=== PATIENT | male | born 1965 | race Caucasian/White ===

== ENCOUNTER 2018-12-09 18:45 | Inpatient (IN) | payer MEDICARE, MEDICAID ==
[~2018-12-09] VITALS: Ht 195.6 cm; Wt 81.6 kg
[2018-12-09] MEDS ORDERED: PRO1 PO (18:55)
[2018-12-09] MEDS ORDERED: LISI2.5T47 PO (18:55)
[2018-12-09] MEDS ORDERED: ATEN-42 PO (18:55)
[2018-12-09] MEDS ORDERED: GLIP5TAB12 PO (18:55)
[2018-12-09] MEDS ORDERED: REN800 PO (18:55)
[2018-12-09] MEDS ORDERED: IPRATROPIUM/ALBUTEROL 0.5-3(2.5)MG/3ML NEB HHN ONE (20:45)
[2018-12-09] MEDS ORDERED: LEVOFLOXACIN 500MG PREMIX 100 ML IV ONE (20:45)
[2018-12-09 21:14] LABS: BASOPHILS % 1.4 % (0.0-2.0); EOSINOPHILS % 4.7 % (0.0-5.0); HEMATOCRIT. 31.3 % (42.0-52.0); HEMOGLOBIN. 10.6 g/dL (14.0-18.0); LYMPHOCYTES % 16.2 % (20.0-50.0); MEAN CORPUSCULAR HEMOGLOBIN 31.8 pg (28.0-32.0); MONOCYTES % 6.2 % (2.0-8.0); NEUTROPHILS % 71.5 % (40.0-76.0); PLATELET 134 x1000/uL (130-400); RED BLOOD CELL COUNT 3.33 mill/uL (4.7-6.1); RED CELL DISTRIBUTION WIDTH 16.4 % (11.6-14.6)
[2018-12-09 21:20] LABS: CHLORIDE 101 mEq/L (98-107)
[2018-12-09 21:22] LABS: INR 1.1; PARTIAL THROMBOPLASTIN TIME 29.4 sec (23.4-31.0); PROTHROMBIN TIME 11.5 sec (9.6-11.0)
[2018-12-09 21:23] LABS: ETHANOL BLOOD < 10 mg/dL
[2018-12-09] MEDS ORDERED: HYDROCODONE/ACETAMINOPHEN 5/325MG TABLET PO PRN (23:30)
[2018-12-09] MEDS ORDERED: ONDANSETRON HCL 4MG/2ML INJ IV PRN (23:30)
[2018-12-09] MEDS ORDERED: IPRATROPIUM/ALBUTEROL 0.5-3(2.5)MG/3ML NEB INH PRN (23:30)
[2018-12-10] MEDS: LORAZEPAM 2MG/ML CPJ IV PRN (03:44)
[2018-12-10] MEDS: CLONIDINE 0.1MG TABLET PO PRN (09:55)
[2018-12-10] MEDS: THIAMINE HCL 100MG TABLET PO SCH (10:14)
[2018-12-10] MEDS: ASPIRIN 81MG EC TABLET PO SCH (10:14)
[2018-12-10] MEDS: ENOXAPARIN 30MG/0.3ML SYR SUBCUT SCH (10:16)
[2018-12-10 10:39] VITALS: BP 166/85
[2018-12-10 10:40] VITALS: BP 160/80
[2018-12-10] MEDS ORDERED: ASPI-1159 PO (11:29)
[2018-12-10] MEDS ORDERED: FOLI0.8T23 MT (11:31)
[2018-12-10] MEDS ORDERED: LIP40 PO (11:31)
[2018-12-10 12:00] VITALS: BP 162/78
[2018-12-10] MEDS ORDERED: LORAZEPAM 0.5MG TABLET PO PRN (12:15)
[2018-12-10 16:00] VITALS: BP 148/71
[2018-12-10 20:00] VITALS: BP 139/59
[2018-12-11] VITALS (8 sets, daily range): BP systolic 147–203; BP diastolic 75–90
[2018-12-11] MEDS: CLONIDINE 0.1MG TABLET PO PRN (00:01)
[2018-12-11] MEDS: LORAZEPAM 2MG/ML CPJ IV PRN (04:22)
[2018-12-11 07:04] LABS: BASOPHILS % 1.3 % (0.0-2.0); EOSINOPHILS % 5.2 % (0.0-5.0); HEMATOCRIT. 32.4 % (42.0-52.0); HEMOGLOBIN. 10.7 g/dL (14.0-18.0); LYMPHOCYTES % 14.3 % (20.0-50.0); MEAN CORPUSCULAR HEMOGLOBIN 31.5 pg (28.0-32.0); MEAN CORPUSCULAR VOLUME 95.5 fL (80.0-94.0); MEAN PLATELET VOLUME 10.9 fl (7.4-10.4); MONOCYTES % 6.5 % (2.0-8.0); NEUTROPHILS % 72.7 % (40.0-76.0); PLATELET 123 x1000/uL (130-400); RED BLOOD CELL COUNT 3.39 mill/uL (4.7-6.1); RED CELL DISTRIBUTION WIDTH 16.3 % (11.6-14.6)
[2018-12-11 07:36] LABS: PHOSPHORUS 4.6 mg/dL (2.5-4.9)
[2018-12-11] MEDS: ASPIRIN 81MG EC TABLET PO SCH (08:01)
[2018-12-11] MEDS: ENOXAPARIN 30MG/0.3ML SYR SUBCUT SCH (08:01)
[2018-12-11] MEDS: THIAMINE HCL 100MG TABLET PO SCH (08:01)
[2018-12-11] MEDS ORDERED: MAGNESIUM/ALUMINUM HYDROXIDE/SIMETHICONE 30ML UDC PO PRN (13:00)
[2018-12-11] MEDS ORDERED: DEXTROSE 50% WATER 50ML SYRINGE IV PRN ×2 (13:00)
[2018-12-11] MEDS: BLOOD SUGAR DIAGNOSTIC STRIP TEST SCH ×2 (17:38→20:21)
[2018-12-11] MEDS: SEVELAMER CARBONATE 800 MG TABLET PO SCH (17:52)
[2018-12-11] MEDS: NIFEDIPINE XL 60MG TAB PO SCH (17:55)
[2018-12-11] MEDS: LISINOPRIL 10MG TABLET PO SCH (20:21)
[2018-12-11] MEDS: GUAIFENESIN 600MG ER TABLET PO SCH (20:21)
[2018-12-11] MEDS: ATENOLOL 50 MG TABLET PO SCH (20:21)
[2018-12-11] MEDS ORDERED: ATORVASTATIN CALCIUM 40MG TABLET PO SCH (21:00)
[2018-12-12] VITALS: BP 200/81
[2018-12-12] MEDS: CLONIDINE 0.1MG TABLET PO PRN (00:11)
[2018-12-12 04:00] VITALS: BP 129/66
[2018-12-12] MEDS: BLOOD SUGAR DIAGNOSTIC STRIP TEST SCH ×2 (06:49→12:54)
[2018-12-12 07:22] LABS: BASOPHILS % 1.4 % (0.0-2.0); EOSINOPHILS % 5.6 % (0.0-5.0); HEMATOCRIT. 34.1 % (42.0-52.0); HEMOGLOBIN. 11.3 g/dL (14.0-18.0); LYMPHOCYTES % 14.9 % (20.0-50.0); MEAN CORPUSCULAR HEMOGLOBIN 31.2 pg (28.0-32.0); MEAN CORPUSCULAR VOLUME 94.2 fL (80.0-94.0); MEAN PLATELET VOLUME 10.9 fl (7.4-10.4); MONOCYTES % 7.2 % (2.0-8.0); NEUTROPHILS % 70.9 % (40.0-76.0); PLATELET 142 x1000/uL (130-400); RED BLOOD CELL COUNT 3.62 mill/uL (4.7-6.1); RED CELL DISTRIBUTION WIDTH 16.2 % (11.6-14.6)
[2018-12-12] MEDS ORDERED: GLIPIZIDE 5MG TABLET PO SCH (07:40)
[2018-12-12] MEDS ORDERED: OMEPRAZOLE 20MG CAPSULE EXTENDED RELEASE PO SCH (07:40)
[2018-12-12 08:00] VITALS: BP 147/72
[2018-12-12] MEDS: GUAIFENESIN 600MG ER TABLET PO SCH (09:06)
[2018-12-12] MEDS: SEVELAMER CARBONATE 800 MG TABLET PO SCH ×2 (09:07→13:33)
[2018-12-12] MEDS: THIAMINE HCL 100MG TABLET PO SCH (09:07)
[2018-12-12] MEDS: ASPIRIN 81MG EC TABLET PO SCH (09:07)
[2018-12-12] MEDS: ENOXAPARIN 30MG/0.3ML SYR SUBCUT SCH (09:07)
[2018-12-12 09:28] LABS: PHOSPHORUS 5.8 mg/dL (2.5-4.9)
[2018-12-12 12:00] VITALS: BP 160/71
[2018-12-12] MEDS: LISINOPRIL 10MG TABLET PO SCH (13:38)
[2018-12-12] MEDS: ATENOLOL 50 MG TABLET PO SCH (14:59)
[2018-12-12] MEDS: NIFEDIPINE XL 60MG TAB PO SCH (14:59)
[2018-12-12 15:50] VITALS: BP 154/73
[2018-12-12 16:00] VITALS: BP 154/73
== END 2018-12-12 16:20 | disposition home or self-care (01) | DRG 291 ==
LOC: ER 18:45 → EDBEDREQTM 23:31 → EDBEDREQ 23:31 → 7WST 23:33 → ENRESERV 12-10 09:19
PROVIDERS: ADMIT Internal Medicine Nephrology; ATTEND Internal Medicine Nephrology
PROC: 5A1D70Z Performance of Urinary Filtration, Intermittent, Less than 6 Hours Per Day (ICD-10-PCS; principal; 2018-12-10)
PROC: 5A1D70Z Performance of Urinary Filtration, Intermittent, Less than 6 Hours Per Day (ICD-10-PCS; 2018-12-12)
DX: I13.2 Hypertensive heart and chronic kidney disease with heart failure and with stage 5 chronic kidney disease, or end stage renal disease (principal); I50.31 Acute diastolic (congestive) heart failure; N18.6 End stage renal disease; J96.00 Acute respiratory failure, unspecified whether with hypoxia or hypercapnia; E11.22 Type 2 diabetes mellitus with diabetic chronic kidney disease; E78.00 Pure hypercholesterolemia, unspecified; E78.5 Hyperlipidemia, unspecified; I27.20 Pulmonary hypertension, unspecified; I16.0 Hypertensive urgency; E87.5 Hyperkalemia; D63.8 Anemia in other chronic diseases classified elsewhere; Z82.49 Family history of ischemic heart disease and other diseases of the circulatory system; Z99.2 Dependence on renal dialysis; Z79.84 Long term (current) use of oral hypoglycemic drugs
CPT/HCPCS: 36415; 71045; 80048; 80061; 80320; 82962; 83036; 83605; 83735; 83880; 84100; 84484; 93005; 93306; 93970; 96365; 96375; 97161; 99285; C1893; J1650; J1956; J2060; J7620; G0480

== ENCOUNTER → 2019-01-08 | Outpatient (CLI) | payer MEDICARE, MEDICAID ==
[~2019-01-08] MED LIST: ASPI-1393 PO; ATEN-42 PO; FOLI0.8T23 MT; GLIP5TAB12 PO; LIP40 PO; LISI2.5T47 PO; PRO1 PO; REN800 PO
== END | disposition home or self-care (01) ==
LOC: NM 12-31 11:31
PROVIDERS: ATTEND Specialist
DX: J44.9 Chronic obstructive pulmonary disease, unspecified (principal)
CPT/HCPCS: 71045; 78582; A9540; A9558

== ENCOUNTER → 2019-03-12 | Outpatient (CLI) | payer MEDICARE, MEDICAID | END | disposition home or self-care (01) | LOC: NM 09:13 | PROVIDERS: ATTEND Specialist | DX: I27.20 Pulmonary hypertension, unspecified (principal); J98.11 Atelectasis | CPT/HCPCS: 71046; 78582; A9540; A9558 ==

== ENCOUNTER 2019-07-15 09:39 | Inpatient (IN) | payer MEDICARE, MEDICAID ==
[~2019-07-15] VITALS: Ht 182.9 cm; Wt 82.1 kg
[2019-07-15] MEDS ORDERED: ONDANSETRON HCL 4MG/2ML INJ IV PRN (11:30)
[2019-07-15] MEDS ORDERED: ALBUTEROL (0.083%) 2.5MG/3ML NEB HHN ONE (11:45)
[2019-07-15] MEDS ORDERED: SODIUM POLYSTYRENE SULFONATE 15 G/60 ML BOT PO ONE (11:45)
[2019-07-15] MEDS ORDERED: INSULIN REGULAR (HUMULIN R) 300UNITS/3ML IV ONE (11:45)
[2019-07-15] MEDS ORDERED: DEXTROSE 50% WATER 50ML SYRINGE IV ONE (11:45)
[2019-07-15] MEDS ORDERED: SODIUM BICARBONATE 8.4% 1 MEQ/ML 50ML SYR IV ONE (11:45)
[2019-07-15] MEDS ORDERED: FUROSEMIDE 100MG/10ML VIAL IV STA (11:45)
[2019-07-15] MEDS ORDERED: DILTIAZEM HCL 5MG/ML 5ML VIAL IV ONE (12:45)
[2019-07-15 13:15] LABS: BASOPHILS % 1.1 % (0.0-2.0); EOSINOPHILS % 10.1 % (0.0-5.0); HEMATOCRIT. 39.2 % (42.0-52.0); HEMOGLOBIN. 13.1 g/dL (14.0-18.0); LYMPHOCYTES % 10.2 % (20.0-50.0); MEAN CORPUSCULAR VOLUME 96.2 fL (80.0-94.0); MEAN PLATELET VOLUME 11.2 fl (7.4-10.4); MONOCYTES % 4.5 % (2.0-8.0); NEUTROPHILS % 74.1 % (40.0-76.0); PLATELET 163 x1000/uL (130-400); RED BLOOD CELL COUNT 4.08 mill/uL (4.7-6.1); RED CELL DISTRIBUTION WIDTH 15.9 % (11.6-14.6)
[2019-07-15] MEDS ORDERED: DILTIAZEM HCL 60MG TABLET PO ONE (13:30)
[2019-07-15 14:06] LABS: CHLORIDE 99 mEq/L (98-107)
[2019-07-15] MEDS: AMLODIPINE 10MG TABLET PO SCH (14:29)
[2019-07-15] MEDS ORDERED: CALCIUM GLUCONATE 100MG/ML 10ML VIAL IV ONE (15:15)
[2019-07-15] MEDS: LOSARTAN POTASSIUM 100 MG TABLET PO SCH (15:15)
[2019-07-15] MEDS: NEBIVOLOL HCL 5 MG TABLET PO SCH (15:16)
[2019-07-15 16:46] VITALS: BP 192/77
[2019-07-15 16:47] VITALS: BP 192/77
[2019-07-15] MEDS: ACETAMINOPHEN 325MG TABLET PO PRN (17:22)
[2019-07-15] MEDS ORDERED: DEXTROSE 50% WATER 50ML SYRINGE IV PRN (19:45)
[2019-07-15 20:00] VITALS: BP 189/81
[2019-07-15] MEDS: INSULIN LISPRO 100 UNITS/ML SUBCUT SCH (21:00)
[2019-07-15] MEDS: HEPARIN 5000 UNITS/ML VIAL SUBCUT SCH (21:20)
[2019-07-15] MEDS: BLOOD SUGAR DIAGNOSTIC STRIP TEST SCH (21:20)
[2019-07-16] VITALS (7 sets, daily range): BP systolic 160–200; BP diastolic 68–92
[2019-07-16] MEDS ORDERED: NIFEDIPINE 10MG CAPSULE PO SCH (06:00)
[2019-07-16 06:32] LABS: BASOPHILS % 1.2 % (0.0-2.0); EOSINOPHILS % 10.4 % (0.0-5.0); HEMOGLOBIN. 11.6 g/dL (14.0-18.0); LYMPHOCYTES % 9.3 % (20.0-50.0); MEAN CORPUSCULAR HEMOGLOBIN 32.2 pg (28.0-32.0); MEAN CORPUSCULAR VOLUME 93.9 fL (80.0-94.0); MEAN PLATELET VOLUME 11.2 fl (7.4-10.4); MONOCYTES % 6.4 % (2.0-8.0); NEUTROPHILS % 72.7 % (40.0-76.0); PLATELET 135 x1000/uL (130-400); RED BLOOD CELL COUNT 3.62 mill/uL (4.7-6.1); RED CELL DISTRIBUTION WIDTH 15.9 % (11.6-14.6)
[2019-07-16] MEDS: BLOOD SUGAR DIAGNOSTIC STRIP TEST SCH ×4 (07:01→22:00)
[2019-07-16] MEDS: INSULIN LISPRO 100 UNITS/ML SUBCUT SCH ×4 (07:01→22:00)
[2019-07-16 07:32] LABS: CHLORIDE 102 mEq/L (98-107)
[2019-07-16 07:42] LABS: HDL CHOLESTEROL 58 mg/dL (40-59)
[2019-07-16 07:44] LABS: LDL CHOLESTEROL 26 mg/dL (5-100)
[2019-07-16] MEDS ORDERED: LISINOPRIL 2.5MG TABLET PO SCH (09:00)
[2019-07-16] MEDS ORDERED: ATENOLOL 50 MG TABLET PO SCH (09:00)
[2019-07-16] MEDS ORDERED: ATENOLOL 25MG TABLET PO SCH (09:00)
[2019-07-16] MEDS: ASPIRIN 81MG EC TABLET PO SCH (09:29)
[2019-07-16] MEDS: NEBIVOLOL HCL 5 MG TABLET PO SCH (09:29)
[2019-07-16] MEDS: FOLIC ACID/VITAMIN B COMP W-C TABLET PO SCH (09:30)
[2019-07-16] MEDS: SEVELAMER CARBONATE 800 MG TABLET PO SCH (09:30)
[2019-07-16] MEDS: LOSARTAN POTASSIUM 100 MG TABLET PO SCH (09:31)
[2019-07-16] MEDS: AMLODIPINE 10MG TABLET PO SCH (09:31)
[2019-07-16] MEDS: HEPARIN 5000 UNITS/ML VIAL SUBCUT SCH ×3 (09:33→21:00)
[2019-07-16] MEDS ORDERED: CLONIDINE 0.1MG TABLET PO PRN (19:15)
[2019-07-16] MEDS ORDERED: ATORVASTATIN CALCIUM 40MG TABLET PO SCH (21:00)
[2019-07-17] MEDS: NIFEDIPINE XL 60MG TAB PO SCH ×2 (00:27→08:54)
[2019-07-17] MEDS: ACETAMINOPHEN 325MG TABLET PO PRN (00:28)
[2019-07-17 01:07] VITALS: BP 173/74
[2019-07-17 04:00] VITALS: BP 117/72
[2019-07-17] MEDS: INSULIN LISPRO 100 UNITS/ML SUBCUT SCH ×2 (06:49→12:31)
[2019-07-17] MEDS: BLOOD SUGAR DIAGNOSTIC STRIP TEST SCH ×2 (06:49→12:44)
[2019-07-17 08:00] VITALS: BP 135/87
[2019-07-17] MEDS: SEVELAMER CARBONATE 800 MG TABLET PO SCH (08:53)
[2019-07-17] MEDS: FOLIC ACID/VITAMIN B COMP W-C TABLET PO SCH (08:54)
[2019-07-17] MEDS: ASPIRIN 81MG EC TABLET PO SCH (08:54)
[2019-07-17] MEDS: LOSARTAN POTASSIUM 100 MG TABLET PO SCH (08:54)
[2019-07-17] MEDS: HEPARIN 5000 UNITS/ML VIAL SUBCUT SCH (08:54)
[2019-07-17] MEDS: NEBIVOLOL HCL 5 MG TABLET PO SCH (08:55)
[2019-07-17 12:00] VITALS: BP 135/63
[2019-07-17] MEDS ORDERED: NEBI5TAB3 PO (12:08)
[2019-07-17] MEDS ORDERED: LOSA100T3 PO (12:08)
[2019-07-17 13:49] LABS: HEMATOCRIT. 34.7 % (42.0-52.0); HEMOGLOBIN. 11.6 g/dL (14.0-18.0); MEAN CORPUSCULAR VOLUME 95.2 fL (80.0-94.0); MEAN PLATELET VOLUME 11.5 fl (7.4-10.4); PLATELET 142 x1000/uL (130-400); RED BLOOD CELL COUNT 3.64 mill/uL (4.7-6.1); RED CELL DISTRIBUTION WIDTH 16.2 % (11.6-14.6)
[2019-07-17 13:55] VITALS: BP 135/63
[2019-07-17 14:02] LABS: PLATELET ESTIMATE NORMAL
== END 2019-07-17 15:36 | disposition home or self-care (01) | DRG 291 ==
LOC: ER 09:39 → EDBEDREQSVC 12:37 → EDBEDREQTM 12:37 → 7WST 14:43 → EDBEDREQSVC 14:56 → EDBEDREQTM 14:56 → EDBEDREQ 14:56 → ENRESERV 15:35
PROVIDERS: ADMIT Internal Medicine; ATTEND Internal Medicine
PROC: 5A1D70Z Performance of Urinary Filtration, Intermittent, Less than 6 Hours Per Day (ICD-10-PCS; principal; 2019-07-15)
PROC: 5A1D70Z Performance of Urinary Filtration, Intermittent, Less than 6 Hours Per Day (ICD-10-PCS; 2019-07-16)
PROC: 5A1D70Z Performance of Urinary Filtration, Intermittent, Less than 6 Hours Per Day (ICD-10-PCS; 2019-07-17)
DX: I13.2 Hypertensive heart and chronic kidney disease with heart failure and with stage 5 chronic kidney disease, or end stage renal disease (principal); N18.6 End stage renal disease; I16.1 Hypertensive emergency; E87.5 Hyperkalemia; I16.0 Hypertensive urgency; E11.22 Type 2 diabetes mellitus with diabetic chronic kidney disease; E11.319 Type 2 diabetes mellitus with unspecified diabetic retinopathy without macular edema; E78.5 Hyperlipidemia, unspecified; I27.20 Pulmonary hypertension, unspecified; E78.00 Pure hypercholesterolemia, unspecified; I50.9 Heart failure, unspecified; Z79.84 Long term (current) use of oral hypoglycemic drugs; Z82.49 Family history of ischemic heart disease and other diseases of the circulatory system; Z79.899 Other long term (current) drug therapy; Z99.2 Dependence on renal dialysis; Z79.82 Long term (current) use of aspirin
CPT/HCPCS: 36415; 71045; 80048; 80051; 80061; 82962; 83036; 83735; 83880; 84132; 84484; 93005; 93306; 96374; 96375; 99285; J0610; J1644; J1815; J1940; J3490; J7611

== ENCOUNTER 2019-11-12 08:49 | Emergency (ER) | payer MEDICARE, MEDICAID ==
[~2019-11-12] VITALS: Ht 165.1 cm; Wt 84.0 kg
[~2019-11-12 08:49] MED LIST changes: -ASPI-1393 PO; +ASPI-1497 PO; -ATEN-42 PO; -GLIP5TAB12 PO; -LISI2.5T47 PO; +LOSA100T3 PO; +NEBI5TAB3 PO
[2019-11-12 08:59] VITALS: BP 177/84
[2019-11-12] MEDS ORDERED: ACETAMINOPHEN 325MG TABLET PO ONE (09:30)
== END 2019-11-12 12:58 | disposition home or self-care (01) ==
LOC: ER 08:49
DX: M79.602 Pain in left arm (principal); R20.0 Anesthesia of skin; I12.0 Hypertensive chronic kidney disease with stage 5 chronic kidney disease or end stage renal disease; E11.22 Type 2 diabetes mellitus with diabetic chronic kidney disease; N18.6 End stage renal disease; Z99.2 Dependence on renal dialysis
CPT/HCPCS: 93922; 93971; 99285

== ENCOUNTER 2020-03-29 14:18 | Inpatient (IN) | payer MEDICARE, MEDICAID ==
[~2020-03-29] VITALS: Ht 162.6 cm; Wt 87.1 kg
[2020-03-29 15:28] LABS: BASOPHILS % 0.6 % (0.0-2.0); EOSINOPHILS % 3.1 % (0.0-5.0); HEMATOCRIT. 28.9 % (42.0-52.0); HEMOGLOBIN. 9.9 g/dL (14.0-18.0); LYMPHOCYTES % 15.3 % (20.0-50.0); MEAN CORPUSCULAR HEMOGLOBIN 32.6 pg (28.0-32.0); MEAN CORPUSCULAR VOLUME 95.1 fL (80.0-94.0); MEAN PLATELET VOLUME 10.6 fl (7.4-10.4); MONOCYTES % 7.4 % (2.0-8.0); NEUTROPHILS % 73.6 % (40.0-76.0); PLATELET 144 x1000/uL (130-400); RED BLOOD CELL COUNT 3.05 mill/uL (4.7-6.1); RED CELL DISTRIBUTION WIDTH 15.5 % (11.6-14.6)
[2020-03-29 15:36] LABS: INR 1.1; PROTHROMBIN TIME 11.3 sec (9.6-11.0)
[2020-03-29 15:48] LABS: CHLORIDE 97 mEq/L (98-107)
[2020-03-29] MEDS ORDERED: LOSARTAN POTASSIUM 25 MG TABLET PO SCH (16:08)
[2020-03-29] MEDS: AMLODIPINE 2.5MG TABLET PO SCH (16:27)
[2020-03-29 23:25] VITALS: BP 135/65
[2020-03-30] VITALS: BP 135/65
[2020-03-30] MEDS ORDERED: ZOLPIDEM TARTRATE 5MG TABLET PO PRN (01:15)
[2020-03-30] MEDS ORDERED: DEXTROSE 50% WATER 50ML SYRINGE IV PRN ×2 (01:15→09:30)
[2020-03-30 04:00] VITALS: BP 143/58
[2020-03-30] MEDS: BLOOD SUGAR DIAGNOSTIC STRIP TEST SCH ×4 (06:11→20:00)
[2020-03-30] MEDS: INSULIN LISPRO 100 UNITS/ML SUBCUT SCH ×4 (06:13→20:00)
[2020-03-30 06:17] LABS: CHLORIDE 101 mEq/L (98-107)
[2020-03-30 06:37] LABS: BASOPHILS % 1.2 % (0.0-2.0); EOSINOPHILS % 3.8 % (0.0-5.0); HEMATOCRIT. 27.5 % (42.0-52.0); HEMOGLOBIN. 9.3 g/dL (14.0-18.0); LYMPHOCYTES % 16.3 % (20.0-50.0); MEAN CORPUSCULAR HEMOGLOBIN 32.5 pg (28.0-32.0); MEAN CORPUSCULAR VOLUME 95.5 fL (80.0-94.0); MEAN PLATELET VOLUME 11.1 fl (7.4-10.4); MONOCYTES % 8.8 % (2.0-8.0); NEUTROPHILS % 69.9 % (40.0-76.0); PLATELET 120 x1000/uL (130-400); RED BLOOD CELL COUNT 2.88 mill/uL (4.7-6.1); RED CELL DISTRIBUTION WIDTH 14.8 % (11.6-14.6)
[2020-03-30 08:00] VITALS: BP 171/67
[2020-03-30] MEDS ORDERED: ENOXAPARIN 40MG/0.4ML SYR SUBCUT SCH (09:00)
[2020-03-30] MEDS ORDERED: NIFEDIPINE 10MG CAPSULE PO SCH (09:00)
[2020-03-30] MEDS ORDERED: MAGNESIUM/ALUMINUM HYDROXIDE/SIMETHICONE 30ML UDC PO PRN (09:30)
[2020-03-30] MEDS ORDERED: ONDANSETRON HCL 4MG/2ML INJ IV PRN (09:30)
[2020-03-30] MEDS ORDERED: DOCUSATE SODIUM 100MG CAPSULE PO PRN (09:30)
[2020-03-30] MEDS ORDERED: HYDROCODONE/ACETAMINOPHEN 5/325MG TABLET PO PRN (09:30)
[2020-03-30] MEDS ORDERED: IPRATROPIUM/ALBUTEROL 0.5-3(2.5)MG/3ML NEB HHN PRN (09:30)
[2020-03-30] MEDS ORDERED: ACETAMINOPHEN 325MG TABLET PO PRN (09:30)
[2020-03-30] MEDS: ENOXAPARIN 30MG/0.3ML SYR SUBCUT SCH (09:31)
[2020-03-30] MEDS: NEBIVOLOL HCL 5 MG TABLET PO SCH (09:32)
[2020-03-30] MEDS: SEVELAMER CARBONATE 800 MG TABLET PO SCH ×2 (09:32→20:00)
[2020-03-30] MEDS: AMLODIPINE 2.5MG TABLET PO SCH (09:32)
[2020-03-30] MEDS: FOLIC ACID/VITAMIN B COMP W-C TABLET PO SCH (09:32)
[2020-03-30] MEDS: LOSARTAN POTASSIUM 100 MG TABLET PO SCH (09:33)
[2020-03-30] MEDS: ASPIRIN 81MG EC TABLET PO SCH (09:33)
[2020-03-30 12:00] VITALS: BP 199/64
[2020-03-30] MEDS ORDERED: BLOOD SUGAR DIAGNOSTIC STRIP TEST SCH (12:10)
[2020-03-30 16:00] VITALS: BP 159/90
[2020-03-30 20:00] VITALS: BP 194/88
[2020-03-30] MEDS: ATORVASTATIN CALCIUM 40MG TABLET PO SCH (20:00)
[2020-03-30] MEDS: CLONIDINE 0.1MG TABLET PO PRN (21:36)
[2020-03-31] VITALS (7 sets, daily range): BP systolic 151–192; BP diastolic 68–78
[2020-03-31] MEDS: CLONIDINE 0.1MG TABLET PO PRN (03:56)
[2020-03-31 06:14] LABS: BASOPHILS % 1.3 % (0.0-2.0); EOSINOPHILS % 4.2 % (0.0-5.0); HEMATOCRIT. 26.7 % (42.0-52.0); HEMOGLOBIN. 9.3 g/dL (14.0-18.0); LYMPHOCYTES % 14.6 % (20.0-50.0); MEAN CORPUSCULAR HEMOGLOBIN 33.3 pg (28.0-32.0); MEAN CORPUSCULAR VOLUME 95.4 fL (80.0-94.0); MEAN PLATELET VOLUME 10.9 fl (7.4-10.4); MONOCYTES % 7.6 % (2.0-8.0); NEUTROPHILS % 72.3 % (40.0-76.0); PLATELET 126 x1000/uL (130-400); RED CELL DISTRIBUTION WIDTH 15.5 % (11.6-14.6)
[2020-03-31] MEDS: BLOOD SUGAR DIAGNOSTIC STRIP TEST SCH ×4 (06:17→21:54)
[2020-03-31] MEDS: INSULIN LISPRO 100 UNITS/ML SUBCUT SCH ×4 (06:46→21:50)
[2020-03-31 06:49] LABS: PHOSPHORUS 5.2 mg/dL (2.5-4.9)
[2020-03-31] MEDS: LOSARTAN POTASSIUM 100 MG TABLET PO SCH (08:46)
[2020-03-31] MEDS: NEBIVOLOL HCL 5 MG TABLET PO SCH (08:46)
[2020-03-31] MEDS: FOLIC ACID/VITAMIN B COMP W-C TABLET PO SCH (08:46)
[2020-03-31] MEDS: SEVELAMER CARBONATE 800 MG TABLET PO SCH ×2 (08:46→21:53)
[2020-03-31] MEDS: ENOXAPARIN 30MG/0.3ML SYR SUBCUT SCH (08:46)
[2020-03-31] MEDS: ASPIRIN 81MG EC TABLET PO SCH (08:46)
[2020-03-31] MEDS: AMLODIPINE 2.5MG TABLET PO SCH (08:58)
[2020-03-31] MEDS: ATORVASTATIN CALCIUM 40MG TABLET PO SCH (21:53)
[2020-04-01] VITALS (9 sets, daily range): BP systolic 141–175; BP diastolic 47–72
[2020-04-01] MEDS: INSULIN LISPRO 100 UNITS/ML SUBCUT SCH ×4 (06:22→20:56)
[2020-04-01] MEDS: BLOOD SUGAR DIAGNOSTIC STRIP TEST SCH ×4 (06:22→20:36)
[2020-04-01 06:29] LABS: EOSINOPHILS % 3.9 % (0.0-5.0); HEMATOCRIT. 26.6 % (42.0-52.0); HEMOGLOBIN. 9.2 g/dL (14.0-18.0); LYMPHOCYTES % 13.3 % (20.0-50.0); MEAN CORPUSCULAR HEMOGLOBIN 33.2 pg (28.0-32.0); MEAN CORPUSCULAR VOLUME 95.5 fL (80.0-94.0); NEUTROPHILS % 72.8 % (40.0-76.0); PLATELET 127 x1000/uL (130-400); RED BLOOD CELL COUNT 2.78 mill/uL (4.7-6.1); RED CELL DISTRIBUTION WIDTH 15.7 % (11.6-14.6)
[2020-04-01] MEDS: AMLODIPINE 2.5MG TABLET PO SCH (09:00)
[2020-04-01] MEDS: NEBIVOLOL HCL 5 MG TABLET PO SCH ×2 (09:00→10:53)
[2020-04-01] MEDS: LOSARTAN POTASSIUM 100 MG TABLET PO SCH (09:07)
[2020-04-01] MEDS: SEVELAMER CARBONATE 800 MG TABLET PO SCH ×2 (09:07→20:55)
[2020-04-01] MEDS: ENOXAPARIN 30MG/0.3ML SYR SUBCUT SCH (09:07)
[2020-04-01] MEDS: FOLIC ACID/VITAMIN B COMP W-C TABLET PO SCH (09:08)
[2020-04-01] MEDS: ASPIRIN 81MG EC TABLET PO SCH (09:08)
[2020-04-01] MEDS: NIFEDIPINE XL 30MG TAB PO SCH (15:25)
[2020-04-01] MEDS: HYDRALAZINE HCL 50MG TABLET PO SCH ×2 (15:26→21:00)
[2020-04-01] MEDS: CLONIDINE 0.1MG TABLET PO PRN (17:57)
[2020-04-01] MEDS: ATORVASTATIN CALCIUM 40MG TABLET PO SCH (20:55)
[2020-04-01] MEDS ORDERED: AMLODIPINE 2.5MG TABLET PO SCH (21:00)
[2020-04-02] VITALS: BP 141/61
[2020-04-02 04:00] VITALS: BP 140/57
[2020-04-02] MEDS: BLOOD SUGAR DIAGNOSTIC STRIP TEST SCH ×2 (06:25→12:10)
[2020-04-02] MEDS: INSULIN LISPRO 100 UNITS/ML SUBCUT SCH ×2 (06:49→12:40)
[2020-04-02] MEDS: HYDRALAZINE HCL 50MG TABLET PO SCH (06:49)
[2020-04-02 07:28] LABS: BASOPHILS % 1.1 % (0.0-2.0); HEMATOCRIT. 29.3 % (42.0-52.0); LYMPHOCYTES % 13.8 % (20.0-50.0); MEAN CORPUSCULAR HEMOGLOBIN 32.4 pg (28.0-32.0); MEAN CORPUSCULAR VOLUME 95.4 fL (80.0-94.0); MEAN PLATELET VOLUME 11.1 fl (7.4-10.4); MONOCYTES % 7.5 % (2.0-8.0); NEUTROPHILS % 74.6 % (40.0-76.0); PLATELET 150 x1000/uL (130-400); RED BLOOD CELL COUNT 3.07 mill/uL (4.7-6.1); RED CELL DISTRIBUTION WIDTH 15.9 % (11.6-14.6)
[2020-04-02 08:00] VITALS: BP 132/60
[2020-04-02] MEDS: FOLIC ACID/VITAMIN B COMP W-C TABLET PO SCH (09:11)
[2020-04-02] MEDS: NEBIVOLOL HCL 5 MG TABLET PO SCH (09:11)
[2020-04-02] MEDS: LOSARTAN POTASSIUM 100 MG TABLET PO SCH (09:11)
[2020-04-02] MEDS: ASPIRIN 81MG EC TABLET PO SCH (09:11)
[2020-04-02] MEDS: NIFEDIPINE XL 30MG TAB PO SCH (09:12)
[2020-04-02] MEDS: ENOXAPARIN 30MG/0.3ML SYR SUBCUT SCH (09:14)
[2020-04-02] MEDS: SEVELAMER CARBONATE 800 MG TABLET PO SCH (09:41)
[2020-04-02 12:00] VITALS: BP 159/74
[2020-04-02] MEDS ORDERED: HYDR-4135 PO (12:01)
[2020-04-02] MEDS ORDERED: NIFE-33 PO (12:01)
[2020-04-02] MEDS ORDERED: HYDRALAZINE HCL 50MG TABLET PO SCH (14:00)
[2020-04-02 16:00] VITALS: BP 148/62
[2020-04-02 16:22] VITALS: BP 148/72
== END 2020-04-02 16:55 | disposition home or self-care (01) | DRG 682 ==
LOC: ER 14:18 → 8WST 18:43 → ENRESERV 20:18 → CANRESERV 20:18 → ENRESERV 20:29
PROVIDERS: ADMIT Family Medicine Adult Medicine; ATTEND Family Medicine Adult Medicine
PROC: 5A1D70Z Performance of Urinary Filtration, Intermittent, Less than 6 Hours Per Day (ICD-10-PCS; principal; 2020-03-29)
PROC: 5A1D70Z Performance of Urinary Filtration, Intermittent, Less than 6 Hours Per Day (ICD-10-PCS; 2020-03-31)
DX: I12.0 Hypertensive chronic kidney disease with stage 5 chronic kidney disease or end stage renal disease (principal); N18.6 End stage renal disease; I16.1 Hypertensive emergency; I25.10 Atherosclerotic heart disease of native coronary artery without angina pectoris; K52.9 Noninfective gastroenteritis and colitis, unspecified; I27.21 Secondary pulmonary arterial hypertension; E78.5 Hyperlipidemia, unspecified; E78.00 Pure hypercholesterolemia, unspecified; E11.22 Type 2 diabetes mellitus with diabetic chronic kidney disease; D64.9 Anemia, unspecified; D63.1 Anemia in chronic kidney disease; R74.0 Nonspecific elevation of levels of transaminase and lactic acid dehydrogenase [LDH]; D69.6 Thrombocytopenia, unspecified; K80.20 Calculus of gallbladder without cholecystitis without obstruction; Z99.2 Dependence on renal dialysis; Z59.0 Homelessness; Z79.899 Other long term (current) drug therapy
CPT/HCPCS: 36415; 71045; 74176; 76705; 80048; 80053; 80061; 80076; 82962; 83036; 83735; 83880; 84100; 84443; 84484; 85025; 93005; 93306; 93970; 97161; 97165; 99285; J1650; J1815

== ENCOUNTER 2021-03-09 16:40 | Emergency (ER) | payer MEDICARE, MEDICAID ==
[~2021-03-09] VITALS: Ht 175.3 cm; Wt 80.0 kg
[~2021-03-09 16:40] MED LIST changes: +HYDR-4135 PO; +NIFE-33 PO; -PRO1 PO
[2021-03-09 16:41] VITALS: BP 132/78
== END 2021-03-09 18:59 | disposition left against medical advice (07) ==
LOC: ER 16:40
DX: Z53.21 Procedure and treatment not carried out due to patient leaving prior to being seen by health care provider (principal)